=== PATIENT | female | born 1965 | race African-American/Black ===

== ENCOUNTER 2022-07-12 13:39 | Emergency (ER) | payer MEDICAID ==
[~2022-07-12] VITALS: Ht 167.6 cm; Wt 65.9 kg
[2022-07-12 16:09] LABS: Basophils # (auto) 0 10 ^3/uL (0-0.2); Basophils % (auto) 0.4 % (0.0-2.0); Eosinophils # (auto) 0.2 10 ^3/uL (0-0.8); Eosinophils % (auto) 3.3 % (0.0-7.0); Hematocrit 43.2 % (36.0-46.0); Hemoglobin 14.3 g/dL (12.2-16.2); Lymphocytes # (auto) 2.5 10 ^3/uL (0.4-5.4); Lymphocytes % (auto) 35.7 % (10.0-50.0); Mean Corpuscular Hgb Conc. 33.2 g/dL (32.0-36.0); Mean Corpuscular Volume 93.5 fL (80.0-100.0); Monocytes # (auto) 0.3 10 ^3/uL (0-1.3); Monocytes % (auto) 4.5 % (0.0-12.0); Neutrophils # (auto) 3.9 10 ^3/uL (1.6-8.6); Neutrophils % (auto) 56.1 % (37.0-80.0); Nucleated Red Blood Cells % 0.1 %; Red Blood Cells 4.62 10^6/uL (4.0-5.20); Red Cell Distribution Width 12.6 % (11.8-14.3)
[2022-07-12 16:23] LABS: Albumin 3.6 g/dL (3.4-5.0); Calcium 8.8 mg/dL (8.5-10.1); Potassium 3.6 mmol/L (3.5-5.1)
[2022-07-12 16:26] LABS: BUN/Creatinine Ratio 12.6; Bilirubin, Total 0.5 mg/dL (0.2-1.0); Total Protein 7.7 g/dL (6.4-8.2)
[2022-07-12 18:25] VITALS: BP 186/106
[2022-07-12] MEDS ORDERED: amLODIPine BESYLATE 5 MG TAB PO ONE (18:45)
[2022-07-12] MEDS ORDERED: LISINOPRIL 5 MG TAB PO ONE (18:45)
[2022-07-12] MEDS ORDERED: AML5T GT (19:20)
== END 2022-07-12 21:21 | disposition home or self-care (01) ==
LOC: ER 13:39
DX: I10 Essential (primary) hypertension (principal); T50.905A Adverse effect of unspecified drugs, medicaments and biological substances, initial encounter; R41.82 Altered mental status, unspecified; Z76.0 Encounter for issue of repeat prescription; Y92.89 Other specified places as the place of occurrence of the external cause
CPT/HCPCS: 36415; 70450; 71045; 80053; 84484; 85025; 93005

== ENCOUNTER 2025-06-19 09:51 | Emergency (ER) | payer MEDICAID ==
[~2025-06-19] VITALS: Ht 167.6 cm; Wt 69.9 kg
[~2025-06-19 09:51] MED LIST: AML5T GT
--- NOTE | 2025-06-19 10:28 | ED.PDOC ---
History of Present Illness HPI Comments 59 y/o F, with a history of HTN, presents with c/c of HTN. Patient endorses on checking and noticing her blood pressure being elevated for the past 3x days after, recently, running out of her HTN medication 3x days ago, due to changing insurances. No additional pertinent history reported. Denial of any headaches, dizziness, vision or speech changes, chest pain, shortness of breath, or further associated symptoms. 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 all BACKUP ADMINISTRATIVE COORDINATOR Hx Family History Family History: Reviewed,noncontributory to illness Social History Smoker: Cigarettes Alcohol: Denies ETOH Use Drugs: Marijuana Lives In: Home All Other Systems: Reviewed and Negative (Comprehensive systems review obtained and negative except for what is stated in the HPI.) Physical Exam General Appearance: Moderate Distress HEENT: Normal ENT Inspection, Pharynx Normal, TMs Normal Neck: Full Range of Motion, Non-Tender, Normal, Normal Inspection Respiratory: Chest Non-Tender, Lungs Clear, No Accessory Muscle Use, No Respiratory Distress, Normal Breath Sounds Cardiovascular: No Edema, No JVD, No Murmur, No Gallop, Normal Peripheral Pulses, Regular Rate/Rhythm Breast Exam: Deferred Gastrointestinal: No Organomegaly, Non Tender, No Pulsatile Mass, Normal Bowel Sounds, Soft Genitalia: Deferred Pelvic: Deferred Rectal: Deferred Extremities: No calf tenderness, Normal capillary refill, Normal inspection, Normal range of motion, Non-tender, No pedal edema Musculoskeletal : Apperance: Normal Neurologic: Alert, 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 Was a procedure done?: No Differential Dx Considerations may include: HTN emergency, medication noncompliance, among others X-Ray, Labs, Meds, VS Vital Signs Date Time Temp Pulse Resp B/P (MAP) Pulse Ox O2 Delivery O2 Flow Rate FiO2 06/19/25 11:46 64 178/98 (124) 06/19/25 11:42 178/98 06/19/25 10:38 60 20 97 Room Air 06/19/25 10:36 197/101 06/19/25 10:34 97.0 60 20 197/101 (133) 97 97.0 06/19/25 09:53 97.9 71 16 180/84 98 97.9 Lab Test 06/19/25 11:58 06/19/25 10:17 Range/Units Urine Color Yellow Yellow Urine Clarity Clear Clear Urine pH 5.0 5.0-9.0 Urine Specific Wever 1.025 1.001-1.035 Urine Protein Negative Negative Urine Ketones Negative Negative Urine Blood Negative Negative /uL Urine Nitrite Negative Negative Urine Bilirubin Negative Negative Urine Urobilinogen Normal Negative mg/dL Urine Leukocyte Esterase Negative Negative /uL Urine RBC 1 0 - 4 /hpf Urine Microscopic WBC 1 0-5 /HPF Urine Squamous Epithelial Cells Few <5 /hpf Urine Bacteria None seen None Seen /hpf Urine Mucus Few None Seen Urine Glucose Normal Normal mg/dL White Blood Count 7.6 4.4-10.8 10^3/uL Red Blood Count 4.47 4.0-5.20 10^6/uL Hemoglobin 13.8 12.2-16.2 g/dL Hematocrit 40.9 36.0-46.0 % Mean Corpuscular Volume 91.5 80.0-100.0 fL Mean Corpuscular Hemoglobin 30.8 28.0-32.0 pg Mean Corpuscular Hemoglobin Concent 33.6 32.0-36.0 g/dL Red Cell Distribution Width 13.6 11.8-14.3 % Platelet Count 138 L 140-450 10^3/uL Mean Platelet Volume 10.6 6.9-10.8 fL Neutrophils (%) (Auto) 58.5 37.0-80.0 % Lymphocytes (%) (Auto) 31.0 10.0-50.0 % Monocytes (%) (Auto) 6.3 0.0-12.0 % Eosinophils (%) (Auto) 3.8 0.0-7.0 % Basophils (%) (Auto) 0.4 0.0-2.0 % Neutrophils # (Auto) 4.5 1.6-8.6 10 ^3/uL Lymphocytes # (Auto) 2.4 0.4-5.4 10 ^3/uL Monocytes # (Auto) 0.5 0-1.3 10 ^3/uL Eosinophils # (Auto) 0.3 0-0.8 10 ^3/uL Basophils # (Auto) 0 0-0.2 10 ^3/uL Nucleated Red Blood Cells 0.1 % Sodium Level 144 136-145 mmol/L Potassium Level 3.8 3.5-5.1 mmol/L Chloride Level 112 H 98-107 mmol/L Carbon Dioxide Level 25 20-31 mmol/L Anion Gap 7 5-15 Blood Urea Nitrogen 11 9-23 mg/dL Creatinine 0.90 0.550-1.02 mg/dL Glomerular Filtration Rate Calc 73 >90 mL/min BUN/Creatinine Ratio 12.2 10.0-20.0 Serum Glucose 92 74-106 mg/dL Calcium Level 9.4 8.7-10.4 mg/dL Troponin I High Sensitivity 6 </=34 ng/L Current Medications Medications (Trade) Dose Ordered Sig/Gisela Route Start Time Stop Time Status Last Admin Clonidine HCl (Catapres Tablet) 0.2 mg ONCE ONCE PO 06/19/25 10:15 06/19/25 10:16 DC 06/19/25 10:36 Patient alert. Came in because of blood pressure medication. Vitals stable. Answering questions. No chest pain. No shortness a breath. No leg swelling. She was given clonidine. Was given prescription of lisinopril. No acute process. Explained to the patient. Was told to follow up with her primary care physician. Was told to come back if there is any problem. Time of 1ST Reevaluation: 10:30 Reevaluation 1ST: Unchanged Patient Education/Counseling: Diagnosis, Treatment, Need For Follow Up Family Education/Counseling: No Family Present SEPSIS Sepsis Screen Date sepsis recognized/suspect: Jun 19, 2025 Time Sepsis recognized/suspect: 954 Recent Procedure: No On Antibiotic Therapy: No Respiratory Rate >20: No Heart Rate >90: No Temp<36 C (96.8 F) or >38.3 C: No SBP <90 or MAP <65 mmHG: No New Acute Mental Status Change: No Is the patient on CPAP, BIPAP,: No Vital Signs Date Time Temp Pulse Resp B/P (MAP) Pulse Ox O2 Delivery O2 Flow Rate FiO2 06/19/25 11:46 64 178/98 (124) 06/19/25 11:42 178/98 06/19/25 10:38 60 20 97 Room Air 06/19/25 10:36 197/101 06/19/25 10:34 97.0 60 20 197/101 (133) 97 97.0 06/19/25 09:53 97.9 71 16 180/84 98 97.9 Laboratory Tests Test 06/19/25 10:17 White Blood Count 7.6 10^3/uL (4.4-10.8) Medications Medications Dose Ordered Sig/Gisela Route Start Time Stop Time Status Last Admin Dose Admin Clonidine HCl 0.2 mg ONCE ONCE PO 06/19/25 10:15 06/19/25 10:16 DC 06/19/25 10:36 Departure 1 Departure Time of Disposition: 13:45 Impression: Primary Impression: Hypertension Qualified Codes: I10 - Essential (primary) hypertension Disposition: 01 HOME / SELF CARE / HOMELESS Condition: Good e-Prescriptions Lisinopril (Lisinopril) 20 Mg Tab 40 MG PO DAILY for 15 Days, #15 TAB Prov: OZIEL ESCOBEDO MD 06/19/25 Discharged With: Self Critical Care Note Critical Care Time?: No Stability Stability form required: No Heart Score Heart Score: Heart Score Response (Comments) Value History N/A 0 EKG N/A 0 Age N/A 0 Risk Factors N/A 0 Troponin N/A 0 Total 0 I personally scribed for OZIEL ESCOBEDO MD ([email or web address]) on 06/19/25 at 10:28. Electronically submitted by Nils Norton ([email or web address]). OZIEL ESCOBEDO MD Jun 19, 2025 10:28
[2025-06-19 10:37] LABS: Hematocrit 40.9 % (36.0-46.0); Hemoglobin 13.8 g/dL (12.2-16.2); Mean Corpuscular Hemoglobin 30.8 pg (28.0-32.0); Mean Corpuscular Volume 91.5 fL (80.0-100.0); Nucleated Red Blood Cells % 0.1 %
[2025-06-19 10:42] LABS: Potassium 3.8 mmol/L (3.5-5.1); Sodium 144 mmol/L (136-145)
[2025-06-19 10:43] LABS: Anion Gap 7 (5-15); Carbon Dioxide 25 mmol/L (20-31)
[2025-06-19 10:44] LABS: Calcium 9.4 mg/dL (8.7-10.4)
[2025-06-19 10:45] LABS: Chloride 112 mmol/L (98-107)
[2025-06-19 10:48] LABS: Glucose 92 mg/dL (74-106)
[2025-06-19 10:49] LABS: BUN/Creatinine Ratio 12.2 (10.0-20.0); Blood Urea Nitrogen 11 mg/dL (9-23)
[2025-06-19 13:35] LABS: Urine Protein, UAD Negative (Negative)
[2025-06-19] MEDS ORDERED: LISI20TA56 PO (13:46)
[2025-06-19 13:56] VITALS: BP 158/97; PULSE 59; RESP 18; TEMP 97.6; O2SAT 98
== END 2025-06-19 13:58 | disposition home or self-care (01) ==
LOC: ER 09:51
DX: I10 Essential (primary) hypertension (principal); F17.210 Nicotine dependence, cigarettes, uncomplicated; M19.90 Unspecified osteoarthritis, unspecified site
CPT/HCPCS: 36415; 80048; 81001; 84484; 85025